=== PATIENT | female | born 1955 | race Caucasian/White ===

== ENCOUNTER 2021-06-09 11:36 | Outpatient (CLI) | payer MEDICARE, OTHER, SELFPAY ==
--- NOTE | 2021-06-09 11:48 | MM_ITS ---
WS: [id number] Bilateral screening digital mammogram, 06/09/2021 Clinical Data: SCREENING Comparison: 11/07/2017, 03/15/2011. Findings: The breast parenchymal pattern shows fibroglandular tissue. No spiculated masses or clustered calcifi cations are seen. There are no secondary signs of carcinoma. There are lymph nodes in both axilla. Th ere is a mole marker on the left breast. MM/[place] [id number] Impression: 1. Negative bilateral mammogram unchanged. 2. Recommend annual screening mammograms. BIRADS: 1-Negative FOLLOW UP: 1 Year Follow-up The CAD installment account checker was used.
== END 2021-06-09 11:37 | disposition home or self-care (01) ==
LOC: RADSHAW 11:46
PROVIDERS: PCP Electrodiagnostic Medicine; Visit Provider Electrodiagnostic Medicine
DX: Z12.31 Encounter for screening mammogram for malignant neoplasm of breast (principal)
CPT/HCPCS: 77067

== ENCOUNTER 2022-12-06 13:40 | Outpatient (CLI) | payer MEDICARE, OTHER, SELFPAY ==
--- NOTE | 2022-12-06 13:45 | MM_ITS ---
WS: [id number] BILATERAL 3D TOMOSYNTHESIS DIGITAL SCREENING MAMMOGRAPHY WITH CAD CLINICAL INFORMATION: SCREEN HISTORY: Screening mammogram. No current complaints. COMPARISON: June 09, 2021 TECHNIQUE: Bilateral CC and MLO views. FINDINGS: Scattered fibroglandular densities bilaterally. No suspicious focal mass, asymmetry, calcifications, or architectural distortion. No evidence of malignancy. Punctate and lucent centered calcifications. MM/[place] [id number] IMPRESSION: BI-RADS: 2-Benign FOLLOW UP: 1 Year Follow-up Recommend return to annual screening mammography.
== END 2022-12-06 13:41 | disposition home or self-care (01) ==
PROVIDERS: PCP Electrodiagnostic Medicine; Visit Provider Electrodiagnostic Medicine
DX: Z12.31 Encounter for screening mammogram for malignant neoplasm of breast (principal)
CPT/HCPCS: 77063; 77067

== ENCOUNTER → 2022-12-22 11:40 | Outpatient (BNVA) | payer MEDICARE, OTHER, SELFPAY | PROVIDERS: PCP Electrodiagnostic Medicine; Referring Provider Electrodiagnostic Medicine; Visit Provider Student in an Organized Health Care Education/Training Program | DX: G56.03 Carpal tunnel syndrome, bilateral upper limbs (principal); M18.0 Bilateral primary osteoarthritis of first carpometacarpal joints | CPT/HCPCS: 73130; 99204 ==

== ENCOUNTER 2023-01-15 05:44 | Day surgery (SDC) | payer MEDICARE, OTHER, SELFPAY ==
[2023-01-12 09:44] VITALS: BMI 32.2
[2023-01-15] VITALS (7 sets, daily range): BP systolic 90–150; BP diastolic 44–99; PULSE 58–64; RESP 12–18; TEMP 36.2–36.7; O2SAT 94–99
[2023-01-15] MEDS: acetaminophen 1,000 MG/100 ML PIGGYBACK 400 MG IV (06:20)
[2023-01-15] MEDS: sodium chloride 0.9% 1,000 ML 30 ML IV (06:24)
[2023-01-15] MEDS: ketorolac 30 mg/mL INJ IVP (06:25)
--- NOTE | 2023-01-15 06:31 | ANES.PREANE2 ---
Pre-Anesthetic Assessment Height/Weight: Height 1.61 m Weight 83.915 kg Temp Pulse Resp BP Pulse Ox O2 Del Method 97.2 F L 61 18 150/99 97 Room Air 01/15/23 06:09 01/15/23 06:09 01/15/23 06:09 01/15/23 06:09 01/15/23 06:09 01/15/23 06:09 Preop Diagnosis: Left Carpal Tunnel syndrome Operation Date: 01/15/23 07:00 Proposed Procedures p Left Carpal Tunnel Release 55220,G56.03(Left) - Clint Gonsalez, Familial anesthetic complications: None Was Beta Elroy taken within 24 hours: Yes Was Clonidine taken within 24 hours: N/A Last intake: Intake Last Liquid Date 01/14/23 Last Liquid Time 21:00 Last Solid Date 01/14/23 Last Solid Time 21:00 Social No alcohol and No tobacco Exam alert, oriented x 3, clear to auscultation bilaterally and regular rate & rhythm Airway Mallampati: Class III Dentition: false CV/HEM Hypertension Metabolic Thyroid Disease Anesthetic Plan ASA status: 2 Anesthesia: MAC Risk of > 500 ml blood loss (7ml/kg in children): No Medications/Allergies Home Medications Medication Instructions Recorded Confirmed Last Taken Type cholecalciferol (vitamin D3) 25 25 mcg PO DAILY 01/12/23 01/12/23 01/12/23 History mcg (1,000 unit) tablet (Vitamin D3) losartan 100 0.5 tab PO DAILY 01/12/23 01/15/23 01/14/23 History mg-hydrochlorothiazide 25 mg tablet metoprolol tartrate 25 mg tablet 25 mg PO BEDTIME 01/12/23 01/15/23 01/14/23 History levothyroxine 50 mcg tablet 50 mcg PO DAILY 01/15/23 01/15/23 01/14/23 History Allergies Allergy/AdvReac Type Severity Reaction Status Date / Time No Known Allergies Allergy Verified 01/15/23 06:05 Current Medications Generic Name Dose Route Start Last Admin Trade Name Freq PRN Reason Stop Dose Admin Sodium Chloride 1,000 mls @ 30 mls/hr 01/15/23 06:00 01/15/23 06:24 Sodium Chloride 0.9% IV 01/16/23 05:59 30 mls/hr .Q24H REGINE Administration Data Anesthesia Cardiac Studies: No Data to Display
[2023-01-15] MEDS: ceFAZolin 2,000 MG in sodium chloride 0.9% (plus) 50 ML 100 MG IV (06:54)
--- NOTE | 2023-01-15 06:54 | W.PM.OPSUD ---
Surgery/Procedure H&P Update DATE OF PROCEDURE: January 15, 2023 DATE H&P PERFORMED: 12/22/22 CHANGES TO PREVIOUS DOCUMENTATION: None. No changes in HPI visit from office visit on 12/22/2022. Patient has left carpal tunnel syndrome with [place] wrist benefits complication alternatives of surgery and elects proceed with surgical intervention. All questions answered at this time. We will proceed with left carpal tunnel release. PREOP DIAGNOSIS: Left Carpal Tunnel syndrome PRIMARY INDICATION FOR PROCEDURE: Left carpal tunnel syndrome PLANNED PROCEDURE: Operation Date: 01/15/23 07:00 Proposed Procedures p Left Carpal Tunnel Release [id number],G56.03(Left) - Clint Gonsalez DO
[2023-01-15] MEDS: lidocaine-epi 1% 20 mL INJ INJECTION (07:22)
--- NOTE | 2023-01-15 07:27 | PM.OP2 ---
Brief Operative Note Date of procedure: 01/15/23 Pre-op diagnosis: Left carpal tunnel syndrome Post-op diagnosis: same Procedure Done: Left carpal tunnel release Surgeon: Clint Gonsalez Estimated blood loss (mL): 2 Complications: None Post-op Plan: Patient taken to PACU in stable condition recovering well. Pain controlled. Patient receive appropriate discharge instructions as well as pain medication. We will follow-up in the orthopedic office in 2 weeks. Encourage finger and hand range of motion. All questions answered. Condition: stable Disposition: same day Coding Level of Care Code Acute Code for Ronal Truong
--- NOTE | 2023-01-15 07:28 | PM.PACU ---
PACU note Narrative: Patient taken to PACU in stable condition recovering well. Pain controlled. Dressings on in place clean dry and intact the left upper extremity. Patient is able to wiggle fingers. Brisk capillary refill less than 2 seconds. Decreased sensation in the median nerve distribution secondary to local anesthesia as well as preoperative carpal tunnel syndrome. Exam: awake Disposition: discharged
--- NOTE | 2023-01-15 07:29 | P.OP_ITS ---
Operative Report Date of procedure: January 15, 2023 Pre-op diagnosis: Preop Diagnosis Left Carpal Tunnel syndrome Procedure: Post-op diagnosis: Same Procedure done: 1. Left carpal tunnel release Surgeon: Clint Gonsalez DO Anesthesia: MAC (Local) Estimated blood loss: [2]mL Tourniquet time [5]minutes IV fluids: See anesthesia record Complications: None Findings: See operative report narrative Condition: stable Disposition: same day Brief History: Patient is a pleasant [68]year-old [male]?with left carpal tunnel syndrome.? Patient has been worked up in the outpatient setting findings and physical examination consistent with this.? Patient's failed conservative treatment.? We detailed?out?patient's risk benefits complication alternatives with surgical and?nonsurgical treatment options. Through shared decision making, patient?agrees to proceed with surgical intervention of the left carpal tunnel release .? Patient understands and agrees with current plan.? All questions answered.? Patient elects to proceed with surgical intervention with carpal tunnel release. Procedure: Patient seen and evaluated in the preoperative holding area.? Consent was reviewed and signed with patient.? Correct extremity was marked.? Patient was seen evaluated by the anesthesia department once cleared for surgery was brought back to the operative suite.? Patient was kept on [facility] in supine position all bony prominences were well-padded patient properly secured to the bed.? Left upper extremity was then placed onto an armboard.? A nonsterile tourniquet was applied to the left upper arm.? Patient underwent anesthesia per the anesthesia department.? Patient's left upper extremity was then prepped and draped in standard orthopedic fashion.? Final timeout performed.? Patient received appropriate preoperative antibiotics. Under sterile aseptic technique patient received local anesthesia over the preplanned carpal tunnel incision site. Esmarch was used to exsanguinate the left upper extremity and tourniquet was insufflated to 250 mmHg. A standard mini open left carpal tunnel incision was made.? Starting distally at Clark's cardinal line in line with the fourth ray extending proximally distal to the wrist crease centered over the carpal tunnel.? Sharp scalpel incision was made through skin and subcutaneous tissue.? Self-retaining retractor was placed and the palmar fascia was identified.? This was then split longitudinally and direct visualization of the transverse carpal ligament was then made.? I then utilizing scalpel feathered through the transverse carpal ligament until I entered the floor of the transverse carpal tunnel ligament into the carpal tunnel.? Next I switched to dissection scissors and completed my release of the transverse carpal ligament distally with care to protect the recurrent motor branch.? I completely released into the palmar fat and until no entrapment was noted distally.? Care was made to protect the superficial palmar arch during my distal dissection.? Next I then placed a [place] underneath the transverse carpal tunnel ligament to protect the contents of the carpal tunnel and subsequently utilizing dissection scissors under loupe magnification completely released the transverse carpal ligament proximally into the median antebrachial fascia.? Care was made to protect the palmar cutaneous branch by keeping my scissors curved ulnarly.? Once completely released, I then placed my [place] and had appropriate decompression of the carpal tunnel proximally as well as distally.? I then inspected the contents of the carpal tunnel which showed an hourglass shape of the median nerve showing its compression.? No masses were noted.? Tendons appe ared healthy.? Wound was then thoroughly irrigated.? Tourniquet deflated.? Hemostasis satisfactory with bipolar electrocautery.? I then closed the incision with interrupted nylon stitches.? Xeroform 4 x 4's and a bulky soft dressing was applied to the left upper extremity.? Patient was then awakened from anesthesia and taken to PACU in stable condition.? Patient tolerated procedure without complications. Disposition: Patient taken to PACU in stable condition recovering well.? Dressing clean dry and intact.? Patient will receive appropriate discharge instructions as well as pain medication postoperatively.? Patient to follow-up orthopedic office in the office in 2 weeks.? They understand they may be weightbearing as tolerated to the left hand.? Patient should keep incision clean dry and intact.? Patient understands if any questions or concerns may contact the office.
--- NOTE | 2023-01-15 07:32 | PC.NURSE ---
Pt arrived to PACU, resting comfortably, dressing to left wrist C/D/I, left fingers p/w/d, cap refill < 3 seconds. LUE elevated on pillow.
--- NOTE | 2023-01-15 08:00 | ANE.PACU2 ---
Inpatient post-anesthesia follow up: Airway intact: Yes Vital signs: Temperature 98 F Pulse Rate 64 Respiratory Rate 17 Blood Pressure 106/52 Pulse Oximetry 99 Oxygen Delivery Me thod Room Air Oxygen Flow Rate Fraction of Inspir ed Oxygen Hydration adequate: Yes Nausea and vomiting: Yes Pain level: 1 Mental status: Baseline
== END 2023-01-15 08:20 | disposition home or self-care (01) ==
PROVIDERS: PCP Electrodiagnostic Medicine; Visit Provider Student in an Organized Health Care Education/Training Program
PROC: (CPT 64721; principal; 2023-01-15 07:00)
DX: G56.02 Carpal tunnel syndrome, left upper limb (principal); I10 Essential (primary) hypertension; E03.9 Hypothyroidism, unspecified
CPT/HCPCS: 64721; J0131; J0690; J1885; J2704; J2795; J3010; J7030

== ENCOUNTER → 2023-01-30 07:08 | Outpatient (BNVA) | payer MEDICARE, OTHER, SELFPAY | PROVIDERS: PCP Electrodiagnostic Medicine; Visit Provider Student in an Organized Health Care Education/Training Program | DX: G56.01 Carpal tunnel syndrome, right upper limb (principal); Z98.890 Other specified postprocedural states; I10 Essential (primary) hypertension | CPT/HCPCS: 99214 ==

== ENCOUNTER → 2023-11-27 14:48 | Outpatient (BNVA) | payer MEDICARE, OTHER, SELFPAY | PROVIDERS: PCP Electrodiagnostic Medicine; Visit Provider Nurse Practitioner Family | DX: L08.9 Local infection of the skin and subcutaneous tissue, unspecified (principal); L57.0 Actinic keratosis; L02.12 Furuncle of neck; L21.8 Other seborrheic dermatitis; L91.8 Other hypertrophic disorders of the skin | CPT/HCPCS: 11102; 17000; 99204 ==

== ENCOUNTER → 2024-03-13 14:19 | Outpatient (BNVA) | payer MEDICARE, OTHER, SELFPAY | PROVIDERS: PCP Electrodiagnostic Medicine; Visit Provider Nurse Practitioner Family | DX: L40.0 Psoriasis vulgaris (principal); L60.8 Other nail disorders; L40.59 Other psoriatic arthropathy; L81.4 Other melanin hyperpigmentation; L82.1 Other seborrheic keratosis | CPT/HCPCS: 99214 ==

== ENCOUNTER → 2024-10-15 11:25 | Outpatient (BNVA) | payer MEDICARE, OTHER, SELFPAY | PROVIDERS: PCP Electrodiagnostic Medicine; Visit Provider Nurse Practitioner Family | DX: L40.0 Psoriasis vulgaris (principal); L60.8 Other nail disorders; L40.59 Other psoriatic arthropathy; L81.4 Other melanin hyperpigmentation; L82.1 Other seborrheic keratosis; L70.0 Acne vulgaris; L57.0 Actinic keratosis | CPT/HCPCS: 17000; 99214 ==

== ENCOUNTER 2024-10-23 13:56 | Outpatient (CLI) | payer MEDICARE, OTHER, SELFPAY ==
--- NOTE | 2024-10-23 13:40 | MM_ITS ---
WS: [id number] BILATERAL 3D TOMOSYNTHESIS DIGITAL SCREENING MAMMOGRAPHY WITH CAD CLINICAL INFORMATION: SCREENING HISTORY: Screening mammogram. No current complaints. COMPARISON: 2022 TECHNIQUE: Bilateral CC and MLO views. FINDINGS: Scattered fibroglandular densities bilaterally. No suspicious focal mass, asymmetry, calcifications, or architectural distortion. No evidence of malignancy. Incidental punctate and lucent centered calcifications. Vascular calcification. MM/MM scr tomosynthesis [id number] IMPRESSION: DENSITY: There are scattered areas of fibroglandular density. BI-RADS: 2 - Benign. FOLLOW UP: 1 Year Follow-up Recommend return to annual screening mammography.
== END 2024-10-23 13:57 | disposition home or self-care (01) ==
LOC: MOBLMAM 14:10
PROVIDERS: PCP Electrodiagnostic Medicine; Visit Provider Electrodiagnostic Medicine
DX: Z12.31 Encounter for screening mammogram for malignant neoplasm of breast (principal); R92.323 Mammographic fibroglandular density, bilateral breasts; R92.1 Mammographic calcification found on diagnostic imaging of breast
CPT/HCPCS: 77063; 77067

== ENCOUNTER → 2025-04-21 11:13 | Outpatient (BNVA) | payer MEDICARE, OTHER, SELFPAY | PROVIDERS: PCP Electrodiagnostic Medicine; Visit Provider Nurse Practitioner Family | DX: L57.8 Other skin changes due to chronic exposure to nonionizing radiation (principal); L81.4 Other melanin hyperpigmentation; L82.1 Other seborrheic keratosis; D18.01 Hemangioma of skin and subcutaneous tissue; L57.0 Actinic keratosis | CPT/HCPCS: 17000; 99213 ==